=== PATIENT | male | born 1960 | race Caucasian/White ===

== ENCOUNTER 2017-10-27 01:36 | Emergency (ER) | payer OTHER ==
[2017-10-27 02:08] VITALS: RESP 18; TEMP 98; O2SAT 98
[2017-10-27] MEDS ORDERED: DiphenhydrAMINE 50 mg/ml Inj IVP STA (02:24)
[2017-10-27 03:01] LABS: BASO % 0.4 % (0.0-2.0); EOS # 0.2 K/uL (0.0-0.7); EOS % 1.8 % (0.0-4.0); HEMOGLOBIN 14.8 g/dL (12.0-18.0); LYMPH # 2.2 K/uL (1.0-4.3); LYMPH % 21.2 % (20.0-40.0); MEAN CELL VOLUME 75.4 fl (80.0-94.0); MEAN CORPUSCULAR HGB CONC 33.1 g/dL (33.0-37.0); MEAN PLATELET VOLUME 8.8 fl (7.2-11.7); MONO # 0.7 K/uL (0.0-0.8); NEUT # 7.2 K/uL (1.8-7.0); NEUT % 69.6 % (50.0-75.0); NRBC % 0.2 % (0.0-0.0); RBC 5.94 Mil/uL (4.40-5.90); RED CELL DISTRIBUTION WIDTH 14.2 % (11.5-14.5); WHITE BLOOD COUNT 10.3 K/uL (4.8-10.8)
[2017-10-27 03:07] LABS: ALB/GLOB RATIO 1.2 (1.0-2.1); ALBUMIN 4.1 g/dL (3.5-5.0); ALT/SGPT 39 U/L (21-72); AST/SGOT 24 U/L (17-59); BLOOD UREA NITROGEN 12 mg/dl (9-20); CALCIUM 9.3 mg/dL (8.4-10.2); GFR AFRICAN-AMERICAN > 60; GFR NON-AFRICAN AMERICAN > 60
[2017-10-27] MEDS ORDERED: DiphenhydrAMINE 50 mg/ml Inj ONE (03:14)
--- NOTE | 2017-10-27 04:11 | ED PDOC ---
HPI: Headache Time Seen by Provider: 10/27/17 02:10 Chief Complaint (Nursing): Headache Chief Complaint (Provider): Headache History Per: Patient History/Exam Limitations: no limitations Onset/Duration Of Symptoms: Days (x3) Current Symptoms Are (Timing): Still Present Quality: Pressure Associated Symptoms: Nausea. denies: Vomiting Additional Complaint(s): Diogo Chaves is a 56 year old male with a past medical history of hypertension and diabetes, who is presenting to the ER with complains of a headache, gradual in onset 3 days ago. Patient describes the headache as a pressure sensation, and non-thunderclap at onset. Patient reports nausea and paresthesia to left shoulder and arm. He states that he took Tylenol for the severe headache, with minimal relief, and was unable to take any other medications such as Advil due to allergies. Patient states that he noted his blood pressure was high for the last two days and tried to take an extra dose of Enalapril. He denies any vomiting, chest pain, shortness of breath, focal weakness, difficulty walking or speaking. PMD: Dr. Rosado Past Medical History Reviewed: Historical Data, Nursing Documentation, Vital Signs Vital Signs: Last Vital Signs Temp 98.0 F 10/27/17 01:46 Pulse 98 H 10/27/17 01:46 Resp 18 10/27/17 01:46 BP 173/85 H 10/27/17 01:46 Pulse Ox 98 10/27/17 01:46 - Medical History PMH: Diabetes, HTN - Surgical History Other surgeries: back surgery for herniated disc - Family History Family History: States: Diabetes - Social History Ex-Smoker (has not smoked in the last 12 months): Yes Alcohol: Occasional Drugs: Denies - Home Medications Home Medications: Ambulatory Orders Medication Instructions Recorded Metoclopramide [Reglan] 1 tab PO TID PRN #20 tab 10/27/17 - Allergies Allergies/Adverse Reactions: Allergies Allergy/AdvReac Type Severity Reaction Status Date / Time ibuprofen [From Advil] Allergy RASH Verified 10/27/17 01:56 naproxen [From Aleve] Allergy RASH Verified 10/27/17 01:56 Review of Systems ROS Statement: Except As Marked, All Systems Reviewed And Found Negative Cardiovascular: Negative for: Chest Pain Respiratory: Negative for: Shortness of Breath Gastrointestinal: Positive for: Nausea. Negative for: Vomiting Neurological: Positive for: Headache, Other (paresthesia to left shoulder and arm). Negative for: Weakness (focal), Incoordination, Change in Speech Physical Exam - Reviewed Nursing Documentation Reviewed: Yes Vital Signs Reviewed: Yes - Physical Exam Appears: Positive for: Non-toxic, In Acute Distress (mild painful) Head Exam: Positive for: ATRAUMATIC, NORMOCEPHALIC Skin: Positive for: Warm, Dry Eye Exam: Positive for: EOMI, PERRL ENT: Negative for: Pharyngeal Erythema, Tonsillar Exudate Neck: Positive for: Painless ROM, Supple (No meningismus) Cardiovascular/Chest: Positive for: Regular Rate, Rhythm, Chest Non Tender. Negative for: Murmur Respiratory: Positive for: Normal Breath Sounds. Negative for: Wheezing Gastrointestinal/Abdominal: Positive for: Soft. Negative for: Tenderness Back: Positive for: Normal Inspection. Negative for: Vertebral Tenderness Extremity: Positive for: Normal ROM. Negative for: Deformity Lymphatic: Negative for: Adenopathy Neurologic/Psych: Positive for: Alert, package collector II-XII (intact), Oriented (x3). Negative for: Motor/Sensory Deficits - Laboratory Results Result Diagrams: 10/27/17 02:36 10/27/17 02:36 - ECG O2 Sat by Pulse Oximetry: 98 (RA) Pulse Ox Interpretation: Normal - Progress Re-evaluation Time: 05:00 Condition: Improved Medical Decision Making Medical Decision Making: Time: 2:22 Impression: Headache Differentials (including but not limited to): Intercranial Bleed, Intercranial Mass, Hypertensive encephalopathy, migraine headache, tension headache, electrolyte abnormality Plan: --CT Head --EKG --CMP --Magnesium --Phosphorous --Thyroid Stimulating Hormone --ED Urine Dipstick --CBC --Benadryl 25 mg IVP --Reglan [address] Head: FINDINGS: Brain: Mild volume loss No hemorrhage. No significant white matter disease. No edema. Ventricles: Unremarkable. No ventriculomegaly. Bones/joints: Unremarkable. No acute fracture. Soft tissues: Unremarkable. Sinuses: Unremarkable as visualized. No acute sinusitis. Mastoid air cells: Unremarkable as visualized. No mastoid effusion. IMPRESSION: No intracranial hemorrhage.Please see discussion above. 5p Labs unremarkable. Pt reports feeling better. Stable for dc with follow up PMD. Scribe Attestation: Documented by Cinthia Choe acting as a scribe for Mecca Herrera MD. Scribe Attestation: All medical record entries made by the Scribe were at my direction and personally dictated by me. I have reviewed the chart and agree that the record accurately reflects my personal performance of the history, physical exam, medical decision making, and the department course for this patient. I have also personally directed, reviewed, and agree with the discharge instructions and disposition. Disposition - Clinical Impression Clinical Impression: Headache Counseled Patient/Family Regarding: Studies Performed, Diagnosis, Need For Followup, Rx Given - Disposition Disposition: Routine/Home Disposition Time: 05:27 Condition: IMPROVED Additional Instructions: PLEASE REST AND FOLLOW UP WITH YOUR DOCTOR SOON POSSIBLE CONTINUE ALL YOUR REGULAR MEDICATIONS AND MAINTAIN A LOW SODIUM DIET. RETURN TO ER FOR WORSENING SYMPTOMS Prescriptions: Metoclopramide [Reglan] 1 tab PO TID PRN #20 tab PRN Reason: NAUSEA WITH HEADACHE Instructions: Low Salt Diet, High Blood Pressure Emergencies, Headache, Adult ( DC)
[2017-10-27 06:12] VITALS: BP 169/100; PULSE 97
--- NOTE | 2017-10-27 10:52 | CT ---
PROCEDURE: CT HEAD WITHOUT CONTRAST. HISTORY: headache high bp COMPARISON: None available. TECHNIQUE: Axial computed tomography images were obtained through the head/brain without intravenous contrast. Radiation dose: Total exam DLP = 830.5 mGy-cm. This CT exam was performed using one or more of the following dose reduction techniques: Automated exposure control, adjustment of the mA and/or kV according to patient size, and/or use of iterative reconstruction technique. FINDINGS: HEMORRHAGE: No intracranial hemorrhage. BRAIN: No mass effect or edema. No atrophy or chronic microvascular ischemic changes. VENTRICLES: Unremarkable. No hydrocephalus. CALVARIUM: Unremarkable. PARANASAL SINUSES: Unremarkable as visualized. No significant inflammatory changes. MASTOID AIR CELLS: Unremarkable as visualized. No inflammatory changes. OTHER FINDINGS: None. IMPRESSION: No acute intracranial pathology.
--- NOTE | 2017-10-27 14:50 | CARD ---
APPROVED REPORT EKG Measurement Heart [id number] <Conclusion> Normal sinus rhythm Possible Left atrial enlargement Incomplete right bundle branch block Left anterior fascicular block Abnormal ECG
== END 2017-10-27 06:00 | disposition home or self-care (01) ==
LOC: H.ER 01:36
DX: R51 Headache (principal); E11.9 Type 2 diabetes mellitus without complications; I10 Essential (primary) hypertension; Z87.891 Personal history of nicotine dependence; Z88.6 Allergy status to analgesic agent
CPT/HCPCS: 70450; 80053; 83735; 84100; 84443; 85025; 93005; 96374; 99285; J1200; J2765